=== PATIENT | female | born 1985 | race Hispanic/Latino ===

== ENCOUNTER 2018-01-25 09:03 | Emergency (ER) | payer OTHER ==
[~2018-01-25] VITALS: Ht 180.3 cm; Wt 108.9 kg
--- OUTSIDE RECORDS SUMMARY | 2018-01-25 09:05 | XMS REPORT | Clinical Summary ---
Author Author [facility] Organization [facility] Address Unknown Phone Unavailable Care Team Providers Care Conference Planning Manager Name Role Phone Kevin Bashir MD PCP Allergies Active Allergy Reactions Severity Noted Date Comments No Known Drug Allergies 02/19/2017 Current Medications Prescription Sig. Disp. Refills Start End Date Status Date PNV 66-iron Take 1 capsule by mouth Active fmg-hpkcn-sjx-dha daily. (DHMODGBU-ZXL-8) 27-1.25-55-300 mg capsule cyanocobalamin 1,000 09/05/19 Active mcg/mL injection 18 VITAMIN D2 50,000 unit 08/29/19 Active capsule 18 nitrofurantoin, Take 100 mg by mouth 2 10/23/19 Discontin macrocrystal-monohydrate, (two) times a day. Take 18 ued (MACROBID) 100 MG capsule with food for 7 days norgestimate-ethinyl Take 1 tablet by mouth 03/04/20 Discontin estradiol (ORTHO-CYCLEN, daily. 17 ued 28,) 0.25-35 mg-mcg per tablet promethazine (PHENERGAN) Take 25 mg by mouth every 10/27/19 Discontin 25 MG tablet 4 (four) hours as needed 18 ued for nausea or vomiting. 1/2 tab to 1 tab ondansetron (ZOFRAN) 8 MG Take 8 mg by mouth every 10/27/19 Discontin tablet 8 (eight) hours as needed 18 ued for nausea or vomiting. tranexamic acid 650 mg Take 2 tablets TID for up 30 tablet 11 03/04/20 10/27/19 Discontin tabletIndications: Well to 5 heaviest days of 17 18 ued woman exam, Menorrhagia cycle with regular cycle, Fatigue, unspecified type nitrofurantoin, Take 1 capsule (100 mg 14 capsule 0 10/23/19 10/30/19 macrocrystal-monohydrate, total) by mouth 2 (two) 18 18 (MACROBID) 100 MG capsule times a day for 7 days. Active Problems Not on file Encounters Date Type Specialty Care Team Description 10/26/2017 Office Visit Urogynecology Noe Terry MD Mixed stress and urge urinary incontinence (Primary Dx); Uterovaginal prolapse, incomplete; Menorrhagia with regular cycle 10/22/2017 Telephone Obstetrics and Gynecology Yisel Norton MA 10/21/2017 Telephone Obstetrics and Gynecology Yisel Norton MA 10/19/2017 Office Visit Obstetrics and Gynecology Chandler Myers MD Urinary frequency (Primary Dx) 03/19/2017 Telephone Obstetrics and Gynecology Chandler Myers MD 03/05/2017 Telephone Obstetrics and Gynecology Patricia Wilson MA 03/04/2017 Office Visit Obstetrics and Gynecology Chandler Myers MD Well woman exam (Primary Dx); Menorrhagia with regular cycle; Fatigue, unspecified type 02/19/2017 Abstract Obstetrics and Gynecology Chandler Myers MD after 01/24/2017 Family History Medical History Relation Name Comments Breast cancer Maternal Aunt Thyroid disease Mother Relation Name Status Comments Maternal Aunt Mother Social History Tobacco Use Types Packs/Day Years Used Date Never Smoker Smokeless Tobacco: Never Used Alcohol Use Drinks/Week oz/Week Comments Yes 1 Glasses of 0.6 social wine Sex Assigned at Date Recorded Not on file Last Filed Vital Signs Vital Sign Reading Time Taken Blood Pressure 127/78 10/26/2017 1:48 PM CDT Pulse 67 10/26/2017 1:48 PM CDT Temperature - - Respiratory Rate - - Oxygen Saturation - - Inhaled Oxygen - - Concentration Weight 120 kg (264 lb) 10/26/2017 1:48 PM CDT Height 177.8 cm (5' 10") 10/26/2017 1:48 PM CDT Body Mass Index 37.88 10/26/2017 1:48 PM CDT Plan of Treatment Date Type Specialty Care Team Description 03/01/2018 Office Visit Urogynecology Noe Terry MD [address] [facility] [address] [place] [id number] Health Maintenance Due Date Last Done Comments INFLUENZA VACCINE 10/21/2017 CERVICAL CANCER SCREENING 03/04/2020 03/04/2017, 04/12/2010 Procedures Procedure Name Priority Date/Time Associated Diagnosis Comments POC URINALYSIS DIPSTICK Routine 10/26/2017 Mixed stress and urge Results for this 1:53 PM CDT urinary incontinence procedure are in the results section. MEASURE POST VOID Routine 10/26/2017 Mixed stress and urge Results for this RESIDUAL 12:00 AM CDT urinary incontinence procedure are in the results section. MICROSCOPIC EXAMINATION Routine 10/19/2017 Results for this 2:30 PM CDT procedure are in the results section. URINALYSIS, AUTOMATED Routine 10/19/2017 Urinary frequency Results for this WITH MICROSCOPY 2:30 PM CDT procedure are in the results section. URINE CULTURE Routine 10/19/2017 Urinary frequency Results for this 2:30 PM CDT procedure are in the results section. GYNECOLOGIC PAP TEST Routine 03/04/2017 Well woman exam Results for this (IMAGE-GUIDED), 2:53 PM [employer] Menorrhagia with regular procedure are in the LIQUID-BASED PREPARATION cycle results section. AND HUMAN PAPILLOMAVIRUS Fatigue, unspecified type (HPV) HIGH-RISK DNA DETECTION WITH REFLEX TO HPV GENOTYPES 16 AND 18 THYROID STIMULATING Routine 03/04/2017 Well woman exam Results for this HORMONE 2:49 PM [employer] Menorrhagia with regular procedure are in the cycle results section. Fatigue, unspecified type CBC WITH PLATELET AND Routine 03/04/2017 Well woman exam Results for this DIFFERENTIAL 2:49 PM [employer] Menorrhagia with regular procedure are in the cycle results section. Fatigue, unspecified type after 01/24/2017 Results * POC urinalysis dipstick (10/26/2017 1:53 PM) Color urine, POC Yellow Clarity urine, POC Clear Glucose urine, POC Negative Negative Bilirubin urine, POC Negative Negative Ketones urine, POC Negative Negative Specific gravity urine, 1.025 1.005 - 1.030 POC Blood urine, POC Negative Negative pH urine, POC 6.5 5.0, 5.5, 6.0, 6.5, 7.0, 7.5, 8.0, 8.5 Protein urine, POC Negative Negative Urobilinogen urine, POC <2.0 <2.0 Nitrite urine, POC Negative Negative Leukocyte esterase urine, Negative Negative POC Specimen Urine * Measure post void residual (10/26/2017) Total volume, urine 0 ml * Microscopic Examination (10/19/2017 2:30 PM) WBC, UA 0-5 0 - 5 /hpf [facility] RBC, UA 3-10 (A) 0 - 2 /hpf [facility] Epithelial cells (non 0-10 0 - 10 /hpf [facility] renal) Crystals, urine Present (A) N/A [facility] Crystal type Calcium Oxalate N/A [facility] Mucus, UA Present Not Estab. [facility] Bacteria, UA None seen None seen/Few [facility] Narrative Performed At Performed at: [facility] [address] [place], [place] [id number] Networking Technology Instructor: Kenn Velasco MD, Phone:[phone] Performing Organization Address [facility] Phone Number [facility] * Urinalysis, automated with microscopy (10/19/2017 2:30 PM) Specific gravity, urine 1.026 1.005 - 1.030 [facility] pH, urine 5.0 5.0 - 7.5 [facility] Color, UA Yellow Yellow [facility] Appearance Clear Clear [facility] WBC esterase, urine Negative Negative [facility] Protein, UA Negative Negative/Trace [facility] Glucose, urine Negative Negative [facility] Ketones, UA Negative Negative [facility] Occult blood, urine 2+ (A) Negative [facility] Bilirubin, UA Negative Negative [facility] Urobilinogen, UA 0.2 0.2 - 1.0 mg/dL [facility] Nitrite, UA Negative Negative [facility] Microscopic examination See below:Comment: Microscopic [facility] was indicated and was performed. Specimen Urine Narrative Performed At Performed at: [facility] [address] [place], [place] [id number] Networking Technology Instructor: Kenn Velasco MD, Phone:[phone] Performing Organization Address [facility] Phone Number [facility] * Urine culture (10/19/2017 2:30 PM) Urine culture Escherichia coli [facility] 10,000-25,000 colony forming units per mL (A) Comment: Cefazolin <=4 ug/mL Cefazolin with an NOMI <=16 predicts susceptibility to the oral agents cefaclor, cefdinir, cefpodoxime, cefprozil, cefuroxime, cephalexin, and loracarbef when used for therapy of uncomplicated urinary tract infections due to E. coli, Klebsiella pneumoniae, and Proteus mirabilis. Specimen Urine Narrative Performed At Performed at:[address] [place] [address] [id number] Networking Technology Instructor: Kenn Velasco MD, Phone:[phone] Organism Antibiotic Method Susceptibility Escherichia coli Amoxicillin/Clavulanate S ug/mL: Susceptible Escherichia coli Ampicillin S ug/mL: Susceptible Escherichia coli Cefepime S ug/mL: Susceptible Escherichia coli Ceftriaxone S ug/mL: Susceptible Escherichia coli Cefuroxime S ug/mL: Susceptible Escherichia coli Ciprofloxacin S ug/mL: Susceptible Escherichia coli Ertapenem S ug/mL: Susceptible Escherichia coli Gentamicin S ug/mL: Susceptible Escherichia coli Imipenem S ug/mL: Susceptible Escherichia coli Levofloxacin S ug/mL: Susceptible Escherichia coli Meropenem S ug/mL: Susceptible Escherichia coli Nitrofurantoin S ug/mL: Susceptible Escherichia coli Piperacillin/Tazobactam S ug/mL: Susceptible Escherichia coli Tetracycline S ug/mL: Susceptible Escherichia coli Tobramycin S ug/mL: Susceptible Escherichia coli Trimethoprim/Sulfamethoxa S ug/mL: Susceptible zole Comment: Performed at: [id number] Networking Technology Instructor: Kenn Velasco MD, Phone:[phone] Performing Organization Address City/State/Zipcode Phone Number [facility] * Gynecologic Pap Test (Image-guided), Liquid-based Preparation and Human Papillomavirus (HPV) High-risk DNA Detection With Reflex to HPV Genotypes 16 and 18 (03/04/2017 2:53 PM) Diagnosis CommentComment: NEGATIVE FOR [facility] INTRAEPITHELIAL LESION AND MALIGNANCY. Specimen adequacy Comment [facility] Comment: Satisfactory for evaluation.No endocervical component is identified. The absence of an endocervical component was confirmed by an additional screening evaluation. Clinician provided ICD10 Comment [facility] Comment: Z01.419 N92.0 R53.83 Performed by: CommentComment: Adam Suarez [facility] Director Special Education (ASCP) QC reviewed by: CommentComment: Sadaf Huston [facility] Grant Director Special Education (ASCP) Comment . [facility] Note: Comment [facility] Comment: The Pap smear is a screening test designed to aid in the detection of premalignant and malignant conditions of the uterine cervix.It is not a diagnostic procedure and should not be used as the sole means of detecting cervical cancer.Both false-positive and false-negative reports do occur. Test methodology Comment [facility] Comment: This liquid based ThinPrep(R) pap test was screened with the use of an image guided system. HPV, high-risk Negative Negative [facility] 02 Comment: This high-risk HPV test detects thirteen high-risk types (16/18/31/33/35/39/45/51/52/56 /58/59/68) without differentiation. Specimen Swab Narrative Performed At Performed at:[id number] Networking Technology Instructor: Evelyn Steen MD, Phone:[phone] Performed at: - [facility] [address] [place], [id number] Networking Technology Instructor: Evelyn Steen MD, Phone:[phone] Specimen Comment: No. of containers..01 ThinPrep Vial Performing Organization Address City/State/Zipcode Phone Number [facility] * CBC with platelet and differential (03/04/2017 2:49 PM) WBC 7.8 3.4 - 10.8 x10E3/uL [facility] RBC 4.28 3.77 - 5.28 x10E6/uL [facility] HGB 12.4Comment: 11.1 - 15.9 g/dL [facility] Please note reference interval change HCT 37.5 34.0 - 46.6 % [facility] MCV 88 79 - 97 fL [facility] MCH 29.0 26.6 - 33.0 pg [facility] MCHC 33.1 31.5 - 35.7 g/dL [facility] RDW 13.3 12.3 - 15.4 % [facility] Platelet count 339 150 - 379 x10E3/uL [facility] Neutrophils 66 Not Estab. % [facility] Lymphocytes 28 Not Estab. % [facility] Monocytes 4 Not Estab. % [facility] Eosinophils 1 Not Estab. % [facility] Basophils 1 Not Estab. % [facility] Neutrophils, absolute 5.3 1.4 - 7.0 x10E3/uL [facility] Lymphocytes, absolute 2.2 0.7 - 3.1 x10E3/uL [facility] Monocytes, absolute 0.3 0.1 - 0.9 x10E3/uL [facility] Eosinophils, absolute 0.1 0.0 - 0.4 x10E3/uL [facility] Basophils, absolute 0.0 0.0 - 0.2 x10E3/uL [facility] Immature granulocytes 0 Not Estab. % [facility] Immature grans (abs) 0.0 0.0 - 0.1 x10E3/uL [facility] Specimen Blood Narrative Performed At [facility]formed at: [facility] [address] [place], [place] [id number] Networking Technology Instructor: Kenn Velasco MD, Phone:[phone] Performing Organization Address [facility] Phone Number [facility] * Thyroid stimulating hormone (03/04/2017 2:49 PM) TSH 2.230 0.450 - 4.500 uIU/mL [facility] Specimen Blood Narrative Performed At Performed at: [facility] [address] [place], [place] [id number] Networking Technology Instructor: Kenn Velasco MD, Phone:[phone] Performing Organization Address [facility] Phone Number [facility] after 01/24/2017 Insurance Payer Benefit Subscriber ID Type Phone Address Plan / Group [facility] xxxxxxxxx HMO/PPO THCARE CHOICE/CHO ICE + [place] [id number]
[2018-01-25] MEDS ORDERED: DEXAMETHASONE SOD PHOS 10 MG/1 ML VIAL IM ONE (09:30)
[2018-01-25] MEDS ORDERED: KETOROLAC TROMETHAMINE 60 MG/2 ML VIAL IM ONE (09:30)
--- NOTE | 2018-01-25 11:05 | Diagnostic Imaging Report ---
PROCEDURE:X-RAY LEFT ELBOW, COMPLETE COMPARISON:None. INDICATIONS:LEFT ELBOW PAIN FINDINGS: There is a moderate elbow joint effusion. There is a mildly displaced bony density with fragmentation at the medial epicondyle, which is partially corticated inferiorly but indistinct superiorly. Alignment is otherwise unremarkable. No evidence of soft tissue abnormality. CONCLUSION: Moderate elbow joint effusion. Mildly displaced bony fragment at the medial epicondyle, which could reflect sequela of prior trauma. However, if there is point tenderness at this location, then acute fracture is possible. MRI may be considered for further evaluation. Dictated by: BHARAT SOARES M.D. on 01/25/2018 at 11:14 Electronically approved by: BHARAT SOARES M.D. on 01/25/2018 at 11:14
== END 2018-01-25 11:58 | disposition home or self-care (01) ==
LOC: ER 09:03
DX: M25.522 Pain in left elbow (principal); S42.442A Displaced fracture (avulsion) of medial epicondyle of left humerus, initial encounter for closed fracture; X58.XXXA Exposure to other specified factors, initial encounter
CPT/HCPCS: 29125; 73080; 81025; 99283; J1100; J1885

== ENCOUNTER 2019-09-23 12:26 | Emergency (ER) | payer OTHER ==
[~2019-09-23] VITALS: Ht 180.3 cm; Wt 108.9 kg
[2019-09-23] MEDS ORDERED: IBUPROFEN 600 MG TAB PO STA (12:43)
[2019-09-23] MEDS ORDERED: ALBUTEROL SULFATE HFA 8GM INHALATION AEROSOL INH PRN (12:45)
[2019-09-23] MEDS ORDERED: DEXAMETHASONE SOD PHOS 10 MG/1 ML VIAL IM ONE (12:45)
[2019-09-23] MEDS ORDERED: CEFTRIAXONE SOD 1 GM VIAL IM ONE (12:45)
[2019-09-23] MEDS ORDERED: ACETAMINOPHEN/CODEINE ELIX 120-12 MG/5 ML UDC PO ONE (12:45)
--- NOTE | 2019-09-23 12:46 | Emergency Department Note ---
History of Present Illnes History of Present Illness Chief Complaint: COVID PUI History of Present Illness This is a 34 year old female c/o cough body aches since Thursday had covid test Thursday pending results PATIENT IN FROM HOME WITH COMPLAINTS OF COUGH, CONGESTION, AND MUSCLE PAIN SINCE THURSDAY; STATES WAS TESTED FOR COVID ON THURSDAY AT DR HILLS OFFICE BUT DOES NOT HAVE THE RESULTS YET. PATIENT APPEARS IN NO DISTRESS, RESP EVEN AND NONLABORED, O2 SATS 96% ON ROOM AIR Historian: Patient Arrival Mode: Car Onset (how long ago): day(s) (6) Radiation: Denies non-radiation, Denies back, Denies neck, Denies extremity, Denies abdomen, Denies periumbilical, Denies flank, Denies proximal, Denies distal, Denies other Severity: mild Onset quality: gradual Duration (how long): day(s) (5) Timing of current episode: constant Progression: waxing and waning Context: Denies recent illness, Denies recent surgery, Denies recent immobilization, Denies recent travel, Denies trauma/injury, Denies new medications, Denies hx of DVT/PE, Denies non-compliance w/ medications, Denies other Relieving factors: none Exacerbating factors: none Associated symptoms: Denies denies other symptoms, Denies confusion, Denies chest pain, Denies cough, Denies diaphoresis, Denies fever/chills, Denies headaches, Denies loss of appetite, Denies malaise, Denies nausea/vomiting, Denies rash, Denies seizure, Denies shortness of breath, Denies syncope, Denies weakness, Denies other Past Medical/Family History Physician Review I have reviewed the patient's past medical and family history. Any updates have been documented here. Past Medical History Recent Fever: Yes Clinical Suspicion of Infectio: Yes New/Unexplained Change in Ment: No Past Medical History: None Other Medical History: FIBROMYALGIA Past Surgical History: None Social History Smoking Cessation: Never Smoker Counseling Performed: No Alcohol Use: None Any Illegal Drug Use: No Other Last Tetanus: OOD Any Pre-Existing Lines (PICC,: No Review of Systems Review of Systems Constitutional: Reports no symptoms, Reports other (bodayaches) EENTM: Reports no symptoms Cardiovascular: Reports no symptoms Respiratory: Reports cough Gastrointestinal: Reports no symptoms Genitourinary: Reports no symptoms Musculoskeletal: Reports no symptoms Integumentary: Reports no symptoms Neurological: Reports no symptoms Psychological: Reports no symptoms Endocrine: Reports no symptoms Hematological/Lymphatic: Reports no symptoms Review of other systems: All other systems negative Physical Exam Related Data Allergies: Coded Allergies: No Known Allergies (Unverified , 01/25/18) Triage Vital Signs Vital Signs Date Time Temp Pulse Resp B/P (MAP) Pulse Ox O2 Delivery O2 Flow Rate FiO2 09/23/19 12:33 100.5 103 22 138/95 96 Room Air Vital signs reviewed: Yes Physical Exam CONSTITUTIONAL Constitutional: Present well-developed, Present well-nourished HENT HENT: Present normocephalic, Present atraumatic, Present oropharynx clear/moist, Present nose normal, Present erythema (pharynx mild ); Absent nasal congestion, Absent tonsillar excudate HENT L/R: Present left ext ear normal, Present right ext ear normal EYES Eyes: Reports PERRL, Reports conjunctivae normal NECK Neck: Present ROM normal PULMONARY Pulmonary: Present effort normal, Present breath sounds normal CARDIOVASCULAR Cardiovascular: Present regular rhythm, Present heart sounds normal, Present capillary refill normal, Present normal rate GASTROINTESTINAL Abdominal: Present soft, Present nontender, Present bowel sounds normal, Present other (c/o cough) GENITOURINARY Genitourinary: Present exam deferred SKIN Skin: Present warm, Present dry MUSCULOSKELETAL Musculoskeletal: Present ROM normal NEUROLOGICAL Neurological: Present alert, Present oriented x 3, Present no gross motor or sensory deficits PSYCHOLOGICAL Psychological: Present mood/affect normal, Present judgement normal Results Imaging Impressions Procedure: [id number] DX/CHEST SINGLE (PORTABLE) Exam Date: 09/23/19 Exam Time: 1355 REPORT STATUS: Signed EXAMINATION: CHEST SINGLE (PORTABLE) INDICATION: ^Y ^ERMD ORDER ^[id number] ^1355 ^Y COMPARISON: None FINDINGS: AP view TUBES and LINES: None. LUNGS: Lungs are well inflated. Mild bilateral lower lobes reticular opacities. No lobar consolidations or pulmonary edema. PLEURA: No pleural effusion or pneumothorax. HEART AND MEDIASTINUM: The cardiomediastinal silhouette is unremarkable.. BONES AND SOFT TISSUES: No acute osseous lesion. Soft tissues are unremarkable. UPPER ABDOMEN: No free air under the diaphragm. IMPRESSION: Nonspecific mild bibasilar airspace opacities may reflect atelectasis, aspiration, or developing multifocal infection. Signed by: Dr. Segundo Mason M.D. on 09/23/2019 2:39 PM Dictated By: SEGUNDO MASON MD 38 Transcribed By: TODD on 09/23/191438 COPY TO: LONDON FLORES~ Assessment & Plan Medical Decision Making MDM This is a 34 year old female c/o cough body aches since Thursday had covid test Thursday pending results ordered cxr pt medicated w/ tylenol w/ codiene decadron rocephin motrin d/d pne/ bronchitis /viral illness Reassessment Reassessment discussed rad results plan of care and f/u instructions plan : 1. tylenol and motrin 2. increase oral fluids 3. return to ed as needed 4. follow up with your doctor in 1-2 days without fail 5. rx zithromax albuterol prednisone tylenol w/ codiene Assessment & Plan Final Impression: (1) Pneumonia Depart Disposition: HOME, SELF-CARE Last Vital Signs Date Time Temp Pulse Resp B/P (MAP) Pulse Ox O2 Delivery O2 Flow Rate FiO2 09/23/19 12:33 100.5 103 22 138/95 96 Room Air LONDON FLORES Sep 23, 2019 12:46
--- NOTE | 2019-09-23 14:42 | Diagnostic Imaging Report ---
EXAMINATION: CHEST SINGLE (PORTABLE) INDICATION: ^Y ^ERMD ORDER ^[id number] ^[id number] ^Y COMPARISON: None FINDINGS: AP view TUBES and LINES: None. LUNGS: Lungs are well inflated. Mild bilateral lower lobes reticular opacities. No lobar consolidations or pulmonary edema. PLEURA: No pleural effusion or pneumothorax. HEART AND MEDIASTINUM: The cardiomediastinal silhouette is unremarkable.. BONES AND SOFT TISSUES: No acute osseous lesion. Soft tissues are unremarkable. UPPER ABDOMEN: No free air under the diaphragm. IMPRESSION: Nonspecific mild bibasilar airspace opacities may reflect atelectasis, aspiration, or developing multifocal infection. Signed by: Dr. Barbara Chandler M.D. on 09/23/2019 2:39 PM
[2019-09-23] MEDS ORDERED: DEXAMETHASONE SOD PHOS 10 MG/1 ML VIAL ONE (16:10)
[2019-09-23] MEDS ORDERED: IBUPROFEN 600 MG TAB ONE (16:10)
[2019-09-23] MEDS ORDERED: LIDOCAINE HCL 1% LOCAL INJ 20 ML VIAL ONE (16:10)
[2019-09-23] MEDS ORDERED: CEFTRIAXONE SOD 1 GM VIAL ONE (16:11)
[2019-09-23] MEDS ORDERED: AZITHROMYCIN 250 MG TAB PO ONE (16:30)
[2019-09-23] MEDS ORDERED: ACETAMINOPHEN/CODEINE ELIX 120-12 MG/5 ML UDC ONE (16:53)
[2019-09-23 17:24] VITALS: BP 129/85
== END 2019-09-23 17:26 | disposition home or self-care (01) ==
LOC: ER 13:10
DX: J18.9 Pneumonia, unspecified organism (principal); R50.9 Fever, unspecified; R05 Cough; M79.7 Fibromyalgia
CPT/HCPCS: 71045; 99284; J0696; J1100; J2001